=== PATIENT | male | born 1970 ===

== ENCOUNTER 2021-04-15 07:41 | Outpatient (CLI) | payer OTHER, SELFPAY ==
--- NOTE | ~2021-04-15 | US_ITS ---
US abdomen limited DATE: 04/15/2021 08:04 INDICATION: Right upper quadrant abdominal pain TECHNIQUE: Real-time imaging of liver, pancreas, gallbladder COMPARISON: None FINDINGS: There is hepatic steatosis with suboptimal penetration of the liver as a result. No apparen t hepatic space-occupying mass lesion. Normal hepatopedal portal venous flow direction. No evidence of gallstones or gallbladder wall thickening or abnormal pericholecystic fluid collection . Negative sonographic Mukherjee's sign. The common bile duct measures 5 mm, normal. The pancreas is obscured. IMPRESSION: Hepatic steatosis Reviewed, dictated and finalized at [facility]. Reviewed, dictated and finalized at [facility]. IMPRESSION: Hepatic steatosis
== END 2021-04-15 07:42 | disposition home or self-care (01) ==
LOC: ANHIMG 07:43
PROVIDERS: PCP Internal Medicine; Visit Provider Surgery
DX: R10.11 Right upper quadrant pain (principal); K76.0 Fatty (change of) liver, not elsewhere classified
CPT/HCPCS: 76705